=== PATIENT | female | born 1950 | race Two or more races ===

== ENCOUNTER 2022-09-27 10:47 | Outpatient (CLI) | payer OTHER, BC | END 2022-09-27 10:54 | disposition home or self-care (01) | LOC: MAMO-SONO 10:47 | PROVIDERS: ATTEND Internal Medicine | DX: Z12.31 Encounter for screening mammogram for malignant neoplasm of breast (principal) ==

== ENCOUNTER 2022-10-06 10:54 | Outpatient (CLI) | payer OTHER, BC | END 2022-10-06 11:07 | disposition home or self-care (01) | LOC: TOM 10:54 | PROVIDERS: ATTEND Internal Medicine Pulmonary Disease | DX: R06.02 Shortness of breath (principal); M06.1 Adult-onset Still's disease; G12.21 Amyotrophic lateral sclerosis ==

== ENCOUNTER 2022-11-09 12:56 | Outpatient (CLI) | payer OTHER, BC | END 2022-11-09 13:23 | disposition home or self-care (01) | LOC: SONOGRAMA 12:56 | DX: Z12.31 Encounter for screening mammogram for malignant neoplasm of breast (principal) ==

== ENCOUNTER 2023-01-17 11:27 | Emergency (ER) | payer BC ==
[~2023-01-17] VITALS: Ht 157.5 cm; Wt 57.2 kg
[2023-01-17] MEDS ORDERED: ALENDRONATE SOD35 MG (11:55)
[2023-01-17] MEDS ORDERED: BACLOFEN10 MG (11:55)
[2023-01-17] MEDS ORDERED: METHOTREXA25 MG/1 M5 (11:56)
[2023-01-17] MEDS ORDERED: ZOLOFT50 MG (11:57)
[2023-01-17] MEDS ORDERED: RILUTEK50 MG (11:57)
[2023-01-17] MEDS ORDERED: MEXILETINE HCL150 MG (11:57)
[2023-01-17] MEDS ORDERED: TUSNEL LIQUID178 ML PO (14:15)
[2023-01-17] MEDS ORDERED: PAXLOVID 300-11 EACH PO (14:15)
[2023-01-17] MEDS ORDERED: PROAIR RESPICL90 MCG IH (14:15)
== END 2023-01-17 14:33 | disposition home or self-care (01) ==
LOC: ER 11:27
DX: U07.1 COVID-19 (principal); R06.02 Shortness of breath; R05.9 Cough, unspecified; Z16.23 Resistance to quinolones and fluoroquinolones; Z88.1 Allergy status to other antibiotic agents

== ENCOUNTER 2023-01-31 13:21 | Outpatient (CLI) | payer OTHER, BC ==
[~2023-01-31 13:21] MED LIST: ALENDRONATE SOD35 MG; BACLOFEN10 MG; METHOTREXA25 MG/1 M5; MEXILETINE HCL150 MG; PAXLOVID 300-11 EACH PO; PROAIR RESPICL90 MCG IH; RILUTEK50 MG; TUSNEL LIQUID178 ML PO; ZOLOFT50 MG
== END 2023-01-31 13:23 | disposition home or self-care (01) ==
LOC: NUCLEAR 13:21
PROVIDERS: ATTEND Internal Medicine
DX: I87.2 Venous insufficiency (chronic) (peripheral) (principal); I11.9 Hypertensive heart disease without heart failure

== ENCOUNTER 2023-02-18 11:03 | Outpatient (CLI) | payer OTHER, BC | END 2023-02-18 11:06 | disposition home or self-care (01) | LOC: NUCLEAR 11:03 | PROVIDERS: ATTEND Internal Medicine | DX: I87.2 Venous insufficiency (chronic) (peripheral) (principal); I11.9 Hypertensive heart disease without heart failure ==

== ENCOUNTER 2023-12-10 13:33 | Emergency (ER) | payer BC, OTHER ==
[~2023-12-10] VITALS: Ht 157.5 cm; Wt 68.9 kg
[2023-12-10 15:53] LABS: HEMOGLOBIN 11.6 g/dL (12.0-15.00); MEAN CELL VOLUME 90.7 fL (80.00-100.00); MEAN CORPUSCULAR HEMOGLOBIN 30.9 pg (27.00-32.0); MEAN CORPUSCULAR HGB CONC 34.1 g/dl (32.0-36.0); PLATELET COUNT 315 K/uL (150-450); RED BLOOD COUNT 3.75 M/uL (4.00-6.00); RED CELL DISTRIBUTION WIDTH 14.7 % (11.5-14.5)
[2023-12-10 16:14] LABS: INR 0.97; PARTIAL THROMBOPLASTIN TIME 26.3 SECONDS (22.0-34.0); PROTHROMBIN TIME 10.2 SECONDS (9.0-11.5)
[2023-12-10 16:24] LABS: ALBUMIN 3.6 gm/dL (3.4-5.0); BILIRUBIN TOTAL 0.63 mg/dL (0.3-1.2); CALCIUM 9.5 mg/dL (8.5-10.1); CREATININE SERUM 0.54 mg/dL (0.55-1.02); GFR 111.29; GLOBULINA 3.7 G/DL (2.4-3.5); POTASSIUM 4.01 mEq/L (3.5-5.1); TOTAL PROTEIN 7.3 gm/dL (6.4-8.2)
[2023-12-10 17:02] LABS: PH,URINE 5.5 (5.0-8.0); URINE APPEARANCE Clear; URINE BILIRRUBIN Negative (NEGATIVE); URINE BLOOD Negative; URINE COLOR Dark Yellow; URINE GLUCOSE Negative (NEGATIVE); URINE LEUKOCYTE Moderate; URINE NITRATE Positive; URINE PROTEIN Negative (NEGATIVE)
[2023-12-10 17:05] LABS: URINE EPITHELIAL CELLS 12.9 uL (0.0-38.8); URINE RBC 3.6 uL (0.0-20.8); URINE WBC 247.7 uL (0.0-23.2)
[2023-12-10 18:04] LABS: URINE BACTERIA > 9821.5 uL (0.0-1933)
[2023-12-10] MEDS ORDERED: MACROBID 100 M100 MG PO (18:44)
[2023-12-10] MEDS ORDERED: DRAMAMINE25 M1 PO (18:44)
== END 2023-12-10 18:46 | disposition home or self-care (01) ==
LOC: ER 13:34
PROVIDERS: General Practice
DX: R53.81 Other malaise (principal); R42 Dizziness and giddiness; Z20.822 Contact with and (suspected) exposure to COVID-19; Z88.1 Allergy status to other antibiotic agents

== ENCOUNTER 2024-06-27 08:16 | Inpatient (IN) | payer OTHER, BC ==
[~2024-06-27] VITALS: Ht 157.5 cm; Wt 56.7 kg
[~2024-06-27 08:16] MED LIST changes: +DRAMAMINE25 M1 PO; +MACROBID 100 M100 MG PO
[2024-06-27] MEDS ORDERED: GABAPENTIN300 M2 (08:29)
[2024-06-27] MEDS ORDERED: [UNRECOGNIZED DRUG - OTHER] (08:29)
[2024-06-27] MEDS ORDERED: FOLIC ACID1 MG (08:30)
--- NOTE | 2024-06-27 08:31 | NUR ---
PACIENTE ALERTA Y ORIENTADA X3 LA CUAL REFIERE QUE CUANDO RESPIRA PROFUNDO SIENTE DOLOR EN AREA DE COSTADO DERECHO, PACIENTE REFIERE ANTERIORMENTE TUVO FRACTURAS EN COSTILLAS.
[2024-06-27] MEDS ORDERED: KETOROLAC TROMETHAMINE 30 MG VIAL IM STA (09:16)
[2024-06-27] MEDS ORDERED: KETOROLAC TROMETHAMINE 30 MG VIAL ONE (09:25)
[2024-06-27 10:24] LABS: HEMATOCRIT 35.5 % (36.0-45.00); HEMOGLOBIN 11.9 g/dL (12.0-15.00); MEAN CELL VOLUME 92.1 fL (80.00-100.00); MEAN CORPUSCULAR HEMOGLOBIN 30.8 pg (27.00-32.0); MEAN CORPUSCULAR HGB CONC 33.4 g/dl (32.0-36.0); PLATELET COUNT 312 K/uL (150-450); RED BLOOD COUNT 3.85 M/uL (4.00-6.00); RED CELL DISTRIBUTION WIDTH 14.5 % (11.5-14.5)
[2024-06-27 11:09] LABS: ALBUMIN 3.6 gm/dL (3.4-5.0); BILIRUBIN TOTAL 0.61 mg/dL (0.3-1.2); CALCIUM 9.4 mg/dL (8.5-10.1); CREATININE SERUM 0.56 mg/dL (0.55-1.02); GFR 106.41; GLOBULINA 3.4 G/DL (2.4-3.5); POTASSIUM 4.07 mEq/L (3.5-5.1); URINE APPEARANCE Clear; URINE BILIRRUBIN Negative (NEGATIVE); URINE BLOOD Negative; URINE COLOR Yellow; URINE GLUCOSE Negative (NEGATIVE); URINE KETONE Trace (NEGATIVE); URINE LEUKOCYTE Small; URINE NITRATE Positive; URINE PROTEIN Negative (NEGATIVE); URINE UROBILINOGEN 0.2 E.U./dl
[2024-06-27 11:13] LABS: URINE EPITHELIAL CELLS 25.8 uL (0.0-38.8); URINE RBC 3.3 uL (0.0-20.8); URINE WBC 124.9 uL (0.0-23.2)
[2024-06-27 11:28] LABS: URINE BACTERIA > 9821.5 uL (0.0-1933); URINE CAST 0.73 uL (0.0-1.40)
[2024-06-27 11:32] LABS: URINE EPITHELIAL CELLS 0-4 /HPF
[2024-06-27] MEDS ORDERED: CEFTRIAXONE SODIUM 2,000 MG VIAL IV STA (11:53)
[2024-06-27] MEDS ORDERED: CEFTRIAXONE SODIUM 2,000 MG VIAL ONE (12:41)
[2024-06-27] MEDS ORDERED: BACLOFEN 10 MG TABLET PO SCH (18:52)
[2024-06-27] MEDS ORDERED: GABAPENTIN 300 MG CAPSULE PO SCH (18:53)
[2024-06-27] MEDS ORDERED: RILUZOLE 50 MG PO SCH (18:53)
[2024-06-27] MEDS ORDERED: FAMOTIDINE/PF 20 MG in 0.9 % SODIUM CHLORIDE 8 ML IV PUSH SCH (18:59)
[2024-06-27] MEDS ORDERED: ACETAMINOPHEN 500 MG GEL..CAP PO PRN (19:00)
[2024-06-27] MEDS ORDERED: 0.9 % SODIUM CHLORIDE 1,000 ML IV SCH (19:00)
[2024-06-27] MEDS ORDERED: FAMOTIDINE/PF 20 MG/2 ML VIAL ONE (19:06)
[2024-06-27 20:10] LABS: INR 0.96; PARTIAL THROMBOPLASTIN TIME 27.6 SECONDS (22.0-34.0); PROTHROMBIN TIME 10.5 SECONDS (9.0-11.5)
[2024-06-28 01:51] VITALS: BP 116/74; O2SAT 97
[2024-06-28 08:34] VITALS: BP 135/49
[2024-06-28] MEDS ORDERED: SERTRALINE HCL 50 MG TABLET PO SCH (09:00)
[2024-06-28] MEDS ORDERED: ENOXAPARIN SODIUM 40 MG/0.4 ML SYRINGE SUBCUTANEO SCH (09:00)
[2024-06-28] MEDS ORDERED: FOLIC ACID 1 MG TABLET PO SCH (09:00)
[2024-06-28] MEDS ORDERED: CEFTRIAXONE SODIUM 2,000 MG in 0.9 % SODIUM CHLORIDE 100 ML IV SCH (09:00)
[2024-06-28] MEDS ORDERED: RADICAVA PO ONE (13:15)
[2024-06-28 21:14] VITALS: BP 139/83
[2024-06-29 00:59] VITALS: BP 126/73; O2SAT 94
[2024-06-29 05:13] LABS: HEMATOCRIT 31.9 % (36.0-45.00); MEAN CELL VOLUME 92.1 fL (80.00-100.00); MEAN CORPUSCULAR HGB CONC 33.6 g/dl (32.0-36.0); PLATELET COUNT 306 K/uL (150-450); RED BLOOD COUNT 3.46 M/uL (4.00-6.00); RED CELL DISTRIBUTION WIDTH 13.9 % (11.5-14.5)
[2024-06-29 05:22] LABS: HEMOGLOBIN 10.7 g/dL (12.0-15.00); MEAN CORPUSCULAR HEMOGLOBIN 30.9 pg (27.00-32.0)
[2024-06-29 05:33] LABS: CALCIUM 8.7 mg/dL (8.5-10.1); CREATININE SERUM 0.43 mg/dL (0.55-1.02); GFR 144.34; POTASSIUM 3.79 mEq/L (3.5-5.1)
[2024-06-29 09:20] VITALS: BP 125/75; O2SAT 91
[2024-06-29] MEDS ORDERED: LACTOBACILLUS ACIDOPHILUS 1 CAP CAP PO SCH (17:00)
[2024-06-29] MEDS ORDERED: POLYETHYLENE GLYCOL 3350 17 GM BLIST.PACK PO SCH (17:00)
[2024-06-29 18:53] VITALS: BP 138/82
[2024-06-29] MEDS ORDERED: FAMOtidine 20 MG TABLET PO SCH (21:00)
[2024-06-30 01:37] VITALS: BP 135/77; O2SAT 97
[2024-06-30 08:35] VITALS: BP 130/72; O2SAT 96
[2024-06-30 18:02] VITALS: BP 129/76; O2SAT 94
[2024-07-01 00:40] VITALS: BP 121/62
== END 2024-07-01 13:22 | disposition home or self-care (01) | DRG 690 ==
LOC: ER 08:18 → MEDI 20:14
PROVIDERS: General Practice; ADMIT Student in an Organized Health Care Education/Training Program; ATTEND Student in an Organized Health Care Education/Training Program
PROC: BT4JZZZ Ultrasonography of Kidneys and Bladder (ICD-10-PCS; principal; 2024-06-27)
DX: N39.0 Urinary tract infection, site not specified (principal); G12.21 Amyotrophic lateral sclerosis; D72.828 Other elevated white blood cell count

== ENCOUNTER 2024-07-11 12:54 | Outpatient (CLI) | payer OTHER, BC ==
[~2024-07-11 12:54] MED LIST changes: +FOLIC ACID1 MG; +GABAPENTIN300 M2; +[UNRECOGNIZED DRUG - OTHER]
== END 2024-07-11 13:02 | disposition home or self-care (01) ==
LOC: MRI 12:54
PROVIDERS: ATTEND Internal Medicine
DX: M25.511 Pain in right shoulder (principal)
CPT/HCPCS: 73218